=== PATIENT | female | born 1965 | race Caucasian/White ===

== ENCOUNTER 2018-03-15 08:45 | Observation (INO) | payer MEDICARE, MEDICAID ==
[2018-03-14 12:39] LABS: BASOPHILS # (AUTO) 0.1 X10'3 (0-0.2); BASOPHILS % (AUTO) 1.1 % (0-1); EOSINOPHILS # (AUTO) 0.1 X10'3 (0-0.9); EOSINOPHILS % (AUTO) 1.6 % (0-6); HEMATOCRIT 42.7 % (35.0-45.0); HEMOGLOBIN 13.6 g/dl (12.0-16.0); LYMPHOCYTES # (AUTO) 1.9 X10'3 (1.1-4.8); LYMPHOCYTES % (AUTO) 22.1 % (21-51); MEAN CORPUSCULAR HEMOGLOBIN 27.6 PG (27.0-31.0); MEAN CORPUSCULAR HGB CONC 31.8 % (33.0-36.5); MEAN CORPUSCULAR VOLUME 86.9 FL (78-98); MEAN PLATELET VOLUME 9.3 FL (7.4-10.4); MONOCYTES # (AUTO) 0.7 X10'3 (0-0.9); MONOCYTES % (AUTO) 7.7 % (2-12); NEUTROPHILS % (AUTO) 67.5 % (42-75); PLATELET COUNT 329 X10'3 (140-440); RED BLOOD COUNT 4.92 X10'6 (4.20-5.60); RED CELL DISTRIBUTION WIDTH 13.2 % (11.5-14.5); WHITE BLOOD COUNT 8.8 X10'3 (4.5-11.0)
[2018-03-14 12:48] LABS: ALBUMIN 3.3 G/DL (3.4-5.0); ANION GAP 12 (8-16); BLOOD UREA NITROGEN 15 MG/DL (7-18); BUN/CREATININE RATIO 16.5 (6.6-38.0); CALCIUM 8.5 MG/DL (8.5-10.1); CHLORIDE 103 MMOL/L (99-107); CHOL/HDL RATIO 2.7 (0.00-4.99); CHOLESTEROL 167 MG/DL (0-200); CREATININE 0.91 MG/DL (0.40-0.90); GLUCOSE 93 MG/DL (70-104); HDL CHOLESTEROL 61 MG/DL (35-60); LDL CHOLESTEROL 92 MG/DL (50-100); POTASSIUM 4.1 MMOL/L (3.5-5.1); SODIUM 139 MMOL/L (135-145); TOTAL CARBON DIOXIDE 24.4 MMOL/L (24-32); TRIGLYCERIDES 84 MG/DL (20-135); eGFR 65 ML/MIN
[2018-03-14 12:52] LABS: PARTIAL THROMBOPLASTIN TIME 27 SECONDS (22-32); PROTHROMBIN TIME 9.7 SECONDS (9.0-12.0)
[~2018-03-15] VITALS: Ht 165.1 cm; Wt 171.7 kg
[2018-03-15] VITALS (18 sets, daily range): BP systolic 95–153; BP diastolic 51–78
[2018-03-15] MEDS ORDERED: LORazepam 0.5 MG tablet PO PRN (09:15)
[2018-03-15] MEDS ORDERED: diphenhydrAMINE 25mg capsule PO PRN (09:15)
[2018-03-15] MEDS ORDERED: CHOL100046 PO (09:26)
[2018-03-15] MEDS ORDERED: ZIPR20CA2 PO (09:26)
[2018-03-15] MEDS ORDERED: IBUP-1985 PO (09:26)
[2018-03-15] MEDS ORDERED: RANI150T8 PO (09:26)
[2018-03-15] MEDS ORDERED: PRED20TA PO (09:26)
[2018-03-15] MEDS ORDERED: SYN0.088T PO (09:26)
[2018-03-15] MEDS ORDERED: METO25TA6 PO (09:26)
[2018-03-15] MEDS ORDERED: OMEP20CA10 PO (09:26)
[2018-03-15] MEDS ORDERED: DIPH50CA37 PO (09:26)
[2018-03-15] MEDS ORDERED: NITR0.4T51 SL (09:26)
[2018-03-15] MEDS ORDERED: LIDOcaine 1% (10mg/ml)w/preservative injection 20ml MDV ONE (11:58)
[2018-03-15] MEDS ORDERED: nitroGLYCERIN-Tridil 50MG/D5W 250 ML IV ONE (11:58)
[2018-03-15] MEDS ORDERED: iohexol 350 MG/ML 50ML vial IV ONE (11:59)
[2018-03-15] MEDS ORDERED: heparin 1,000unit/ml 10ml vial 10 ML ONE ×2 (11:59→12:57)
[2018-03-15] MEDS ORDERED: iohexol 350MG/ML 100ml bottle IV ONE (11:59)
[2018-03-15] MEDS ORDERED: fentaNYL/PF 50MCG/1 ML 2ML syringe ONE (12:04)
[2018-03-15] MEDS ORDERED: midazolam 2 mg/2 ml injection ONE (12:04)
[2018-03-15] MEDS ORDERED: nitroGLYCERIN 0.4mg SUBLingual tab SL PRN (14:20)
--- NOTE | 2018-03-15 16:00 | NUR ---
COMPRESSION BAND DECOMPRESSED, REMOVED, CLEANSED WITH NORMAL SALINE AND STERILE GAUZE, STERILE 2X2 AND TEGADERM APPLIED OVER SITE. FOLDED 4X4S AND COBAN ADDED FOR SUPPORT, MAY BE REMOVED PRN.
--- NOTE | 2018-03-15 16:37 | NUR ---
Patient in room . I have received report from Sana DELGADILLO and had the opportunity to ask questions and assume patient care.
--- NOTE | 2018-03-15 17:20 | NUR ---
Patient arrived to room 307 via gurney, transferred to bed via sliderboard. Max assist. Oriented to room and call light. Patient is alert and oriented times four. Instructed to lay flat until 1945. Femstop in place, pulses palpable.
[2018-03-15] MEDS ORDERED: ibuprofen 200mg tablet PO PRN (17:30)
[2018-03-15] MEDS: normal saline 1000ml 1,000 ML IV SCH ×2 (17:33→19:15)
--- NOTE | 2018-03-15 18:32 | NUR ---
Problems reprioritized. Patient report given, questions answered & plan of care reviewed with Sathya DELGADILLO.
[2018-03-15] MEDS: famotidine 20mg tablet PO SCH (20:00)
[2018-03-15] MEDS: predniSONE 20 mg tablet PO SCH (20:00)
[2018-03-15] MEDS: metoprolol tartrate 25mg tablet PO SCH (20:01)
[2018-03-15] MEDS ORDERED: ziprasidone 20mg capsule PO SCH (21:00)
[2018-03-15] MEDS: diphenhydrAMINE 25mg capsule PO SCH (21:34)
[2018-03-16 00:45] VITALS: BP 125/60
[2018-03-16 03:00] VITALS: BP 124/59
[2018-03-16 03:30] VITALS: BP 147/76
[2018-03-16] MEDS: normal saline 1000ml 1,000 ML IV SCH (05:15)
[2018-03-16 05:20] VITALS: BP 121/71
--- NOTE | 2018-03-16 06:10 | NUR ---
Patient in room MED 307. I have received report from Sathya and had the opportunity to ask questions and assume patient care.
--- NOTE | 2018-03-16 06:27 | NUR ---
Problems reprioritized. Patient report given, questions answered & plan of care reviewed with LEONA Camacho.
[2018-03-16 06:46] LABS: BASOPHILS % (AUTO) 0.3 % (0-1); EOSINOPHILS # (AUTO) 0.2 X10'3 (0-0.9); EOSINOPHILS % (AUTO) 1.4 % (0-6); HEMATOCRIT 35.2 % (35.0-45.0); HEMOGLOBIN 11.8 g/dl (12.0-16.0); LYMPHOCYTES # (AUTO) 1.6 X10'3 (1.1-4.8); LYMPHOCYTES % (AUTO) 13.6 % (21-51); MEAN CORPUSCULAR HEMOGLOBIN 28.9 PG (27.0-31.0); MEAN CORPUSCULAR HGB CONC 33.5 % (33.0-36.5); MEAN CORPUSCULAR VOLUME 86.4 FL (78-98); MEAN PLATELET VOLUME 8.9 FL (7.4-10.4); MONOCYTES # (AUTO) 0.8 X10'3 (0-0.9); NEUTROPHILS # (AUTO) 9.2 X10'3 (1.8-7.7); NEUTROPHILS % (AUTO) 77.7 % (42-75); PLATELET COUNT 285 X10'3 (140-440); RED BLOOD COUNT 4.08 X10'6 (4.20-5.60); RED CELL DISTRIBUTION WIDTH 14.1 % (11.5-14.5); WHITE BLOOD COUNT 11.8 X10'3 (4.5-11.0)
[2018-03-16 06:55] LABS: ALBUMIN 2.9 G/DL (3.4-5.0); ANION GAP 10 (8-16); BLOOD UREA NITROGEN 21 MG/DL (7-18); BUN/CREATININE RATIO 22.3 (6.6-38.0); CALCIUM 8.3 MG/DL (8.5-10.1); CHLORIDE 106 MMOL/L (99-107); CREATININE 0.94 MG/DL (0.40-0.90); GLUCOSE 125 MG/DL (70-104); POTASSIUM 4.3 MMOL/L (3.5-5.1); SODIUM 140 MMOL/L (135-145); TOTAL CARBON DIOXIDE 23.9 MMOL/L (24-32); eGFR 63 ML/MIN
[2018-03-16] MEDS ORDERED: levoTHYROXINE 100mcg tablet PO SCH (07:00)
[2018-03-16 07:05] VITALS: BP 142/67
[2018-03-16] MEDS ORDERED: pantoprazole 40mg Tablet.DR PO SCH (07:30)
[2018-03-16] MEDS: metoprolol tartrate 25mg tablet PO SCH (08:00)
[2018-03-16] MEDS ORDERED: vitamin D (cholecalciferol) 1,000 unit tablet PO SCH (08:00)
[2018-03-16] MEDS: predniSONE 20 mg tablet PO SCH (08:05)
[2018-03-16] MEDS: famotidine 20mg tablet PO SCH (08:06)
[2018-03-16] MEDS: diphenhydrAMINE 25mg capsule PO SCH (08:06)
--- NOTE | 2018-03-16 09:45 | NUR ---
PROVIDED PATIENT WITH DISCHARGE INSTRUCTIONS WELL PACKET, NO NEW MEDICATIONS WERE ORDERED AND PATIENT IS AWARE TO CONTINUE ALL HOME MEDICATIONS. PATIENT ALSO KNOWS TO FOLLOW UP WITH DR. OLIVER IN 1-2 WEEKS. IV REMOVED, CATHETER INTACT, MINIMAL BLEEDING CLEAN GAUZE APPLIED AND SECURED WITH TAPE. TELE MONITOR REMOVED. PATIENT'S RIDE HOME WILL ARRIVE AROUND 10 AND SHE WILL GO HOME VIA PRIVATE VEHICLE. PATIENT DENIES ANY QUESTIONS OR CONCERNS. ALL PERSONAL BELONGINGS WENT HOME WITH PATIENT.
[2018-03-16] MEDS ORDERED: FLU VACC QUAD 2018(5 YR UP)/PF 60 MCG/0.5 ML SYRINGE IM ONE (10:00)
== END 2018-03-16 10:10 | disposition home or self-care (01) ==
LOC: SSTAY O 08:45 → MED 3N 17:17
PROVIDERS: ADMIT Internal Medicine Cardiovascular Disease; ATTEND Internal Medicine Cardiovascular Disease
DX: I20.9 Angina pectoris, unspecified (principal); R94.39 Abnormal result of other cardiovascular function study; I10 Essential (primary) hypertension; E66.01 Morbid (severe) obesity due to excess calories; E78.5 Hyperlipidemia, unspecified; G47.33 Obstructive sleep apnea (adult) (pediatric)
CPT/HCPCS: 36415; 80048; 80061; 85025; 85610; 85730; 93005; 93460; 99152; 99153; A6257; G0378; J1644; J2001; J2250; J3010; J7030; J7512; Q0163; Q2037; Q9967; A4620; C1760; C1769; J3490